=== PATIENT | female | born 1940 | race Caucasian/White ===

== ENCOUNTER → 2021-09-21 | Outpatient (CLI) | payer MEDICARE, OTHER | LOC: EXRD 13:15 | DX: R19.7 Diarrhea, unspecified (principal) | CPT/HCPCS: 74018 ==

== ENCOUNTER → 2022-01-27 | Outpatient (CLI) | payer MEDICARE, OTHER | LOC: EMI 12:38 | DX: F03.90 Unspecified dementia, unspecified severity, without behavioral disturbance, psychotic disturbance, mood disturbance, and anxiety (principal) | CPT/HCPCS: 70551 ==